=== PATIENT | female | born 1955 | race African-American/Black ===

== ENCOUNTER 2019-08-11 19:53 | Inpatient (IN) | payer MEDICAID ==
[~2019-08-11] VITALS: Ht 162.6 cm; Wt 98.7 kg
[2019-08-11 20:44] LABS: BASOPHILS % 1.2 % (0.0-2.0); EOSINOPHILS % 0.7 % (0.0-5.0); HEMATOCRIT. 40.2 % (36.0-48.0); HEMOGLOBIN. 13.4 g/dL (12.0-16.0); MEAN CORPUSCULAR HEMOGLOBIN 28.8 pg (28.0-32.0); MEAN CORPUSCULAR VOLUME 86.3 fL (81.0-99.0); MEAN PLATELET VOLUME 6.8 fl (7.4-10.4); NEUTROPHILS % 55.1 % (40.0-76.0); PLATELET 410 x1000/uL (130-400); PROTHROMBIN TIME 10.2 sec (9.6-11.0); RED BLOOD CELL COUNT 4.66 mill/uL (4.2-5.4); RED CELL DISTRIBUTION WIDTH 14.7 % (11.6-14.6)
[2019-08-11] MEDS ORDERED: ASPIRIN 81MG TABLET PO ONE (20:45)
[2019-08-11] MEDS ORDERED: CLOPIDOGREL 75MG TABLET PO ONE (20:45)
[2019-08-11 21:00] LABS: CHLORIDE 105 mEq/L (98-107)
[2019-08-11 21:06] LABS: ETHANOL BLOOD < 10 mg/dL
[2019-08-11 21:08] LABS: LDL CHOLESTEROL 107 mg/dL (5-100)
[2019-08-11 22:25] VITALS: BP 138/79
[2019-08-11 23:05] VITALS: BP 138/79
[2019-08-11] MEDS ORDERED: IOHEXOL-350 100 ML BOTTLE ONE (23:22)
[2019-08-12] VITALS (7 sets, daily range): BP systolic 93–133; BP diastolic 66–76
[2019-08-12] MEDS ORDERED: MORPHINE SULFATE 2 MG/ML CPJ (NOT FOR IM USE) IV PRN
[2019-08-12] MEDS ORDERED: DEXTROSE 50% WATER 50ML SYRINGE IV PRN (00:15)
[2019-08-12] MEDS ORDERED: BLOOD SUGAR DIAGNOSTIC STRIP TEST SCH (07:20)
[2019-08-12] MEDS: BLOOD SUGAR DIAGNOSTIC STRIP TEST SCH ×4 (07:33→21:17)
[2019-08-12] MEDS: INSULIN LISPRO 100 UNITS/ML SUBCUT SCH ×4 (07:33→21:00)
[2019-08-12 08:20] LABS: CHLORIDE 105 mEq/L (98-107)
[2019-08-12 08:26] LABS: HEMATOCRIT 38.7 % (36.0-48.0); HEMOGLOBIN 12.9 g/dL (12.0-16.0); MEAN CORPUSCULAR VOLUME 87.1 fL (81.0-99.0); PLATELET 411 x1000/uL (130-400); RED BLOOD CELL COUNT 4.45 mill/uL (4.2-5.4); RED CELL DISTRIBUTION WIDTH 14.5 % (11.6-14.6)
[2019-08-12 08:29] LABS: LDL CHOLESTEROL 90 mg/dL (5-100)
[2019-08-12 08:30] LABS: HDL CHOLESTEROL 57 mg/dL (40-59)
[2019-08-12] MEDS: DOCUSATE SODIUM 250MG CAPSULE PO SCH ×2 (08:34→17:20)
[2019-08-12] MEDS: ENOXAPARIN 30MG/0.3ML SYR SUBCUT SCH ×2 (08:35→21:17)
[2019-08-12] MEDS ORDERED: ENOXAPARIN 40MG/0.4ML SYR SUBCUT SCH (09:00)
[2019-08-12] MEDS ORDERED: ASPIRIN 325MG EC TABLET PO SCH (09:00)
[2019-08-12] MEDS ORDERED: POTASSIUM CHLORIDE 20MEQ TABLET SR PO NR (09:30)
[2019-08-12] MEDS ORDERED: HYDROMORPHONE HCL/PF 2MG/ML CPJ IV SCH (10:30)
[2019-08-12] MEDS: ONDANSETRON HCL 4MG/2ML INJ IV PRN ×2 (11:44→17:29)
[2019-08-12] MEDS: HYDROCODONE/ACETAMINOPHEN 10/325MG TABLET PO PRN ×2 (14:27→19:08)
[2019-08-12] MEDS: HYDROMORPHONE HCL/PF 2MG/ML CPJ IV PRN (16:46)
[2019-08-12] MEDS: ATORVASTATIN CALCIUM 40MG TABLET PO SCH (21:17)
[2019-08-13] VITALS: BP_SYST 110; BP_SYST 112; BP_SYST 124; BP_DIAS 47; BP_DIAS 63; BP_DIAS 64
[2019-08-13 04:00] VITALS: BP 145/91
[2019-08-13] MEDS: BLOOD SUGAR DIAGNOSTIC STRIP TEST SCH ×4 (07:48→20:22)
[2019-08-13] MEDS: INSULIN LISPRO 100 UNITS/ML SUBCUT SCH ×4 (07:48→20:55)
[2019-08-13 07:55] VITALS: BP 100/70
[2019-08-13] MEDS: CLOPIDOGREL 75MG TABLET PO SCH (09:15)
[2019-08-13] MEDS: DOCUSATE SODIUM 250MG CAPSULE PO SCH ×2 (09:15→16:59)
[2019-08-13] MEDS: HYDROCODONE/ACETAMINOPHEN 10/325MG TABLET PO PRN (09:15)
[2019-08-13] MEDS: ENOXAPARIN 30MG/0.3ML SYR SUBCUT SCH ×2 (09:17→20:54)
[2019-08-13] MEDS: ONDANSETRON HCL 4MG/2ML INJ IV PRN (09:22)
[2019-08-13 10:13] LABS: CHLORIDE 104 mEq/L (98-107)
[2019-08-13 10:20] LABS: LDL CHOLESTEROL 103 mg/dL (5-100)
[2019-08-13 10:22] LABS: HDL CHOLESTEROL 57 mg/dL (40-59); T4 FREE 0.97 ng/dL (0.76-1.46)
[2019-08-13 11:42] VITALS: BP 125/65
[2019-08-13] MEDS: HYDROMORPHONE HCL/PF 2MG/ML CPJ IV PRN (12:13)
[2019-08-13 13:03] LABS: FOLIC ACID (FOLATE) SERUM 16.9 ng/mL (>5.38)
[2019-08-13] MEDS ORDERED: SORBITOL 70% SOLN 30ML PO NR (14:00)
[2019-08-13] MEDS ORDERED: POTASSIUM CHLORIDE 20MEQ TABLET SR PO NR (14:00)
[2019-08-13 15:35] VITALS: BP 154/73
[2019-08-13 18:20] LABS: BASOPHILS % 0.6 % (0.0-2.0); EOSINOPHILS % 0.3 % (0.0-5.0); HEMATOCRIT. 37.4 % (36.0-48.0); HEMOGLOBIN. 12.4 g/dL (12.0-16.0); LYMPHOCYTES % 30.8 % (20.0-50.0); MEAN CORPUSCULAR VOLUME 87.4 fL (81.0-99.0); MEAN PLATELET VOLUME 7.1 fl (7.4-10.4); NEUTROPHILS % 59.3 % (40.0-76.0); PLATELET 415 x1000/uL (130-400); RED BLOOD CELL COUNT 4.28 mill/uL (4.2-5.4); RED CELL DISTRIBUTION WIDTH 14.8 % (11.6-14.6)
[2019-08-13] MEDS ORDERED: NA PHOS,M-B/NA PHOS,DI-BA ENEMA 118ML PR NR (18:30)
[2019-08-13 19:08] LABS: CLARITY URINE CLOUDY (CLEAR); COLOR URINE YELLOW (YELLOW); KETONES URINE NEGATIVE (NEGATIVE); LEUKOCYTE ESTERASE URINE NEGATIVE (NEGATIVE); NITRITE URINE NEGATIVE (NEGATIVE); OCCULT BLOOD URINE NEGATIVE (NEGATIVE); PROTEIN URINE TRACE (NEGATIVE); SPECIFIC GRAVITY URINE 1.033 (1.005-1.030); UROBILINOGEN URINE 0.2 E.U./dL (0.2-1.0)
[2019-08-13 19:22] LABS: *AMPHETAMINES SCREEN URINE NEGATIVE (NEGATIVE); *BARBITURATES SCREEN URINE NEGATIVE (NEGATIVE); *BENZODIAZEPINES SCREEN URINE NEGATIVE (NEGATIVE); *COCAINE SCREEN URINE NEGATIVE (NEGATIVE)
[2019-08-13 19:23] LABS: CANNABINOID URINE SCREEN NEGATIVE (NEGATIVE); METHADONE URINE SCREEN NEGATIVE (NEGATIVE); OPIATES URINE SCREEN PRESUMTIVE POSITIVE (NEGATIVE); PHENCYCLIDINE URINE SCREEN NEGATIVE (NEGATIVE)
[2019-08-13 20:00] VITALS: BP 113/60
[2019-08-13] MEDS: ATORVASTATIN CALCIUM 40MG TABLET PO SCH (20:54)
[2019-08-13] MEDS: ZOLPIDEM TARTRATE 5MG TABLET PO PRN (21:25)
[2019-08-14] VITALS (7 sets, daily range): BP systolic 115–158; BP diastolic 64–87
[2019-08-14] MEDS: HYDROMORPHONE HCL/PF 2MG/ML CPJ IV PRN ×3 (06:24→23:13)
[2019-08-14] MEDS: BLOOD SUGAR DIAGNOSTIC STRIP TEST SCH ×4 (06:24→21:00)
[2019-08-14] MEDS: INSULIN LISPRO 100 UNITS/ML SUBCUT SCH ×4 (07:44→21:00)
[2019-08-14] MEDS: ENOXAPARIN 30MG/0.3ML SYR SUBCUT SCH ×2 (08:59→22:12)
[2019-08-14] MEDS: CLOPIDOGREL 75MG TABLET PO SCH (09:00)
[2019-08-14] MEDS: DOCUSATE SODIUM 250MG CAPSULE PO SCH ×2 (09:00→17:26)
[2019-08-14] MEDS: ATORVASTATIN CALCIUM 40MG TABLET PO SCH (22:12)
[2019-08-15] VITALS: BP 116/70
[2019-08-15 04:00] VITALS: BP 116/56
[2019-08-15] MEDS: HYDROCODONE/ACETAMINOPHEN 10/325MG TABLET PO PRN ×2 (04:41→12:19)
[2019-08-15] MEDS: BLOOD SUGAR DIAGNOSTIC STRIP TEST SCH ×4 (06:20→20:37)
[2019-08-15] MEDS: INSULIN LISPRO 100 UNITS/ML SUBCUT SCH ×4 (07:50→20:46)
[2019-08-15 08:00] VITALS: BP 122/72
[2019-08-15] MEDS: ENOXAPARIN 30MG/0.3ML SYR SUBCUT SCH ×2 (08:52→20:37)
[2019-08-15] MEDS: CLOPIDOGREL 75MG TABLET PO SCH (08:52)
[2019-08-15] MEDS: DOCUSATE SODIUM 250MG CAPSULE PO SCH ×2 (08:52→17:18)
[2019-08-15 12:00] VITALS: BP 168/105
[2019-08-15 16:00] VITALS: BP 140/96
[2019-08-15] MEDS ORDERED: MAGNESIUM HYDROXIDE 400MG/5ML 30ML UDC PO SCH (17:00)
[2019-08-15 20:35] VITALS: BP 110/57
[2019-08-15] MEDS: ATORVASTATIN CALCIUM 40MG TABLET PO SCH (20:36)
[2019-08-15] MEDS: ZOLPIDEM TARTRATE 5MG TABLET PO PRN (20:48)
[2019-08-16 00:50] VITALS: BP 124/65
[2019-08-16 04:00] VITALS: BP 102/53
[2019-08-16] MEDS: BLOOD SUGAR DIAGNOSTIC STRIP TEST SCH ×3 (06:34→17:20)
[2019-08-16] MEDS: HYDROCODONE/ACETAMINOPHEN 10/325MG TABLET PO PRN ×2 (06:39→16:53)
[2019-08-16] MEDS: INSULIN LISPRO 100 UNITS/ML SUBCUT SCH ×3 (07:50→17:50)
[2019-08-16 08:00] VITALS: BP 153/92
[2019-08-16] MEDS: CLOPIDOGREL 75MG TABLET PO SCH (10:13)
[2019-08-16] MEDS: DOCUSATE SODIUM 250MG CAPSULE PO SCH ×2 (10:13→16:52)
[2019-08-16] MEDS: ENOXAPARIN 30MG/0.3ML SYR SUBCUT SCH (10:13)
[2019-08-16 12:00] VITALS: BP 121/77
[2019-08-16] MEDS: HYDROMORPHONE HCL/PF 2MG/ML CPJ IV PRN (15:56)
[2019-08-16 16:00] VITALS: BP 128/67
[2019-08-16 16:53] VITALS: BP 128/77
== END 2019-08-16 19:40 | disposition short-term general hospital (02) | DRG 45 ==
LOC: ER 19:53 → 6WST 20:47 → EDBEDREQSVC 20:51 → EDBEDREQTM 20:51 → EDBEDREQ 20:51 → ENRESERV 20:57
PROVIDERS: ADMIT Internal Medicine; ATTEND Internal Medicine
DX: I63.512 Cerebral infarction due to unspecified occlusion or stenosis of left middle cerebral artery (principal); G81.91 Hemiplegia, unspecified affecting right dominant side; E11.9 Type 2 diabetes mellitus without complications; E66.9 Obesity, unspecified; E78.00 Pure hypercholesterolemia, unspecified; E78.5 Hyperlipidemia, unspecified; E87.6 Hypokalemia; I10 Essential (primary) hypertension; I16.0 Hypertensive urgency; J98.11 Atelectasis; Z68.36 Body mass index [BMI] 36.0-36.9, adult; R13.10 Dysphagia, unspecified; Z79.899 Other long term (current) drug therapy; Z71.89 Other specified counseling
CPT/HCPCS: 36415; 70496; 70551; 71045; 80048; 80061; 80305; 80320; 81003; 82607; 82746; 82962; 83036; 83721; 84439; 84443; 84481; 84484; 85027; 92523; 92610; 93005; 93306; 93880; 97163; 97167; 97530; 99291; J1170; J1650; J1815; J2270; J2405; Q9967; G0480